=== PATIENT | female | born 1950 | race Caucasian/White ===

== ENCOUNTER 2023-12-09 11:02 | Observation (INO) | payer BC, OTHER ==
[2023-12-09] MEDS: SODIUM CHLORIDE 1,000 ML IV STA (11:50)
[2023-12-09] MEDS: KETOROLAC TROMETHAMINE 30 MG/1 ML VIAL IVPUSH ONE (11:50)
[2023-12-09] MEDS ORDERED: KETOROLAC TROMETHAMINE 15 MG/ML VIAL ONE (12:07)
[2023-12-09] MEDS ORDERED: ACETAMINOPHEN INJECTION 100 ML IVPB ONE (12:07)
[2023-12-09 12:34] LABS: BASO % 0.3 % (0-2.0); EOS % 1.3 % (0-4.5); LYMPH % 15.1 % (8-40); MCH 28.3 pg (25.7-33.7); MCHC 34.1 g/dl (32.0-36.0); MEAN CELL VOLUME 83.1 fl (80-96); MEAN PLT VOLUME 9.2 fl (7.5-11.1); MONO % 5.1 % (3.8-10.2); NEUT % 78.2 % (42.8-82.8); PLATELET COUNT 283 10^3/uL (134-434); RBC 4.93 M/mm3 (3.60-5.2); RDW 14.8 % (11.6-15.6); WHITE BLOOD COUNT 12.8 K/mm3 (4.0-10.0)
[2023-12-09 12:47] LABS: POTASSIUM 4.7 mmol/L (3.5-5.1)
[2023-12-09 12:49] LABS: CALCIUM 9.8 mg/dL (8.5-10.1)
[2023-12-09 12:50] LABS: ALBUMIN 3.9 g/dl (3.4-5.0); BLOOD UREA NITROGEN 14.8 mg/dL (7-18)
[2023-12-09 12:53] LABS: CREATININE 1.1 mg/dL (0.55-1.3)
[2023-12-09 12:54] LABS: BILIRUBIN,TOTAL 0.5 mg/dL (0.2-1); TOT PROT 7.9 g/dl (6.4-8.2)
[2023-12-09] MEDS: ACETAMINOPHEN 1000 MG/100 ML BAG IVPB ONE (12:54)
[2023-12-09] MEDS ORDERED: morphine SULFATE 4 MG/ML VIAL ONE (13:55)
[2023-12-09] MEDS: morphine CARPU-JECT 4 MG/1 ML DISP.SYRIN IVPUSH ONE (14:00)
[2023-12-09 15:43] LABS: EPI CELLS 11 /uL (0-25.1); HYALINE CASTS 0 /uL (0-3.1); URINE APPEARANCE CLEAR; URINE BACTERIA 20 /uL (0-1359); URINE BILIRUBIN NEGATIVE (NEGATIVE); URINE COLOR YELLOW; URINE GLUCOSE (UA) NEGATIVE (NEGATIVE); URINE KETONE NEGATIVE (NEGATIVE); URINE LEUK ESTERASE 1+ (NEGATIVE); URINE NITRITE NEGATIVE (NEGATIVE); URINE PROTEIN NEGATIVE (NEGATIVE); URINE RBC 745 /uL (0-23.9); URINE UROBILINOGEN 0.2 mg/dL (0.2-1.0); URINE WBC 124 /uL (0-25.8)
[2023-12-09 17:17] VITALS: RESP 18
[2023-12-09] MEDS ORDERED: ACETAMINOPHEN 1000 MG/100 ML BAG IVPB PRN ×2 (18:14→18:57)
[2023-12-09] MEDS ORDERED: TRIMETHOBENZAMIDE HCL 200MG/2ML INJ IM PRN (18:14)
[2023-12-09] MEDS ORDERED: CEFTRIAXONE 1 GM in DEXTROSE 5%-WATER - 50 ML IVPB ONE ×2 (18:30→21:15)
[2023-12-09] MEDS ORDERED: KETOROLAC TROMETHAMINE 15 MG/ML VIAL IVPUSH PRN (18:57)
[2023-12-09] MEDS: SODIUM CHLORIDE 1,000 ML IV SCH (20:25)
[2023-12-09] MEDS: CEFTRIAXONE 1 GM in DEXTROSE 5%-WATER - 50 ML IVPB SCH (21:25)
[2023-12-09] MEDS: TAMSULOSIN HCL 0.4 MG CAP PO ONE (21:26)
[2023-12-09] MEDS: ATORVASTATIN CA 10 MG TABLET (FP) PO SCH (21:27)
[2023-12-10 01:09] VITALS: BMI 30.9
[2023-12-10] MEDS ORDERED: SUCCINYLCHOLINE CHLORIDE 200 MG/10 ML SYRINGE ONE (07:14)
[2023-12-10] MEDS ORDERED: ceFAZolin SODIUM 1 GM VIAL ONE (07:20)
[2023-12-10] MEDS ORDERED: ONDANSETRON 4 MG/2 ML VIAL ONE (07:20)
[2023-12-10] MEDS ORDERED: KETOROLAC TROMETHAMINE 30 MG/1 ML VIAL ONE (07:20)
[2023-12-10] MEDS ORDERED: LIDOCAINE HCL/PF 2% SDV 5ML VIAL ONE (07:20)
[2023-12-10] MEDS ORDERED: DEXAMETHASONE SOD PHOSPHATE 4 MG/1 ML VIAL ONE (07:20)
[2023-12-10] MEDS ORDERED: FENTANYL CITRATE/PF 50 MCG/ML VIAL ONE (07:34)
[2023-12-10] MEDS ORDERED: GENTAMICIN SO4 80 MG/2 ML VIAL ONE (07:34)
[2023-12-10] MEDS ORDERED: MIDAZOLAM HCL 2 MG/2 ML SINGLE DOSE VIAL ONE (07:36)
[2023-12-10] MEDS ORDERED: PROPOFOL 20 ML ONE (07:38)
[2023-12-10] MEDS: GENTAMICIN 80MG PREMIX BAG IVPB ONE (07:43)
[2023-12-10] MEDS: ceFAZolin SODIUM 1 GM VIAL IVPB ONE (07:43)
[2023-12-10] MEDS ORDERED: ACETAMINOPHEN INJECTION 100 ML IVPB ONE (07:57)
[2023-12-10] MEDS ORDERED: ONDANSETRON 4 MG/2 ML VIAL IVPUSH PRN ×2 (08:18→08:54)
[2023-12-10] MEDS ORDERED: LACTATED RINGERS SOLUTION 1,000 ML IV SCH (08:30)
[2023-12-10] MEDS ORDERED: KETOROLAC TROMETHAMINE 15 MG/ML VIAL IVPUSH PRN (08:54)
[2023-12-10] MEDS ORDERED: ACETAMINOPHEN 1000 MG/100 ML BAG IVPB PRN (09:08)
[2023-12-10] MEDS: SODIUM CHLORIDE 1,000 ML IV SCH (09:15)
[2023-12-10] MEDS ORDERED: TRIMETHOBENZAMIDE HCL 200MG/2ML INJ IM PRN (09:23)
[2023-12-10] MEDS: CEFTRIAXONE 1 GM in DEXTROSE 5%-WATER - 50 ML IVPB SCH (09:51)
[2023-12-10 10:44] LABS: BASO % 0.3 % (0-2.0); EOS % 0.2 % (0-4.5); HEMATOCRIT 39.8 % (32.4-45.2); HEMOGLOBIN 13.2 GM/dL (10.7-15.3); LYMPH % 9.7 % (8-40); MCH 28.1 pg (25.7-33.7); MCHC 33.2 g/dl (32.0-36.0); MEAN CELL VOLUME 84.6 fl (80-96); MEAN PLT VOLUME 9.3 fl (7.5-11.1); MONO % 0.9 % (3.8-10.2); NEUT % 88.9 % (42.8-82.8); PLATELET COUNT 240 10^3/uL (134-434); RBC 4.71 M/mm3 (3.60-5.2); RDW 14.9 % (11.6-15.6)
[2023-12-10 11:01] LABS: POTASSIUM 3.8 mmol/L (3.5-5.1)
[2023-12-10 11:03] LABS: CALCIUM 8.4 mg/dL (8.5-10.1)
[2023-12-10 11:04] LABS: ALBUMIN 3.2 g/dl (3.4-5.0); BLOOD UREA NITROGEN 9.8 mg/dL (7-18); MAGNESIUM 2.1 mg/dL (1.8-2.4)
[2023-12-10 11:07] LABS: CREATININE 0.9 mg/dL (0.55-1.3); PHOSPHOROUS 2.4 mg/dL (2.5-4.9)
[2023-12-10 11:08] LABS: BILIRUBIN,TOTAL 0.4 mg/dL (0.2-1)
[2023-12-10 12:23] VITALS: BP 138/76; PULSE 93; TEMP 97.5
[2023-12-10] MEDS ORDERED: ATORVASTATIN CA 10 MG TABLET (FP) PO SCH (22:00)
[2023-12-21 01:11] LABS: SIZE 3x2 mm (.); WEIGHT 8 mg (.)
== END 2023-12-10 14:02 | disposition home or self-care (01) ==
LOC: JER 11:02 → JERBED 17:30 → UNDOADMOB 17:30 → INTOOBSV 17:30 → J6S 18:40 → JERBED 18:40 → J6S 19:50
PROVIDERS: ADMIT Internal Medicine; ATTEND Internal Medicine
PROC: 3E033NZ Introduction of Analgesics, Hypnotics, Sedatives into Peripheral Vein, Percutaneous Approach (ICD-10-PCS; principal; 2023-12-09)
PROC: 3E03329 Introduction of Other Anti-infective into Peripheral Vein, Percutaneous Approach (ICD-10-PCS; 2023-12-09)
PROC: 3E0333Z Introduction of Anti-inflammatory into Peripheral Vein, Percutaneous Approach (ICD-10-PCS; 2023-12-09)
PROC: 3E033NZ Introduction of Analgesics, Hypnotics, Sedatives into Peripheral Vein, Percutaneous Approach (ICD-10-PCS; 2023-12-09)
PROC: 3E0337Z Introduction of Electrolytic and Water Balance Substance into Peripheral Vein, Percutaneous Approach (ICD-10-PCS; 2023-12-09)
PROC: BT1DZZZ Fluoroscopy of Right Kidney, Ureter and Bladder (ICD-10-PCS; 2023-12-09)
PROC: 0TC68ZZ Extirpation of Matter from Right Ureter, Via Natural or Artificial Opening Endoscopic (ICD-10-PCS; 2023-12-09)
PROC: 0T768DZ Dilation of Right Ureter with Intraluminal Device, Via Natural or Artificial Opening Endoscopic (ICD-10-PCS; 2023-12-09)
DX: N13.30 Unspecified hydronephrosis (principal); N20.0 Calculus of kidney; N39.0 Urinary tract infection, site not specified; E03.9 Hypothyroidism, unspecified; R01.1 Cardiac murmur, unspecified; M19.90 Unspecified osteoarthritis, unspecified site; E78.5 Hyperlipidemia, unspecified; Z85.3 Personal history of malignant neoplasm of breast; Z87.442 Personal history of urinary calculi
CPT/HCPCS: 36415; 74177-TC; 76000-TC-FY; 80053; 81003; 82360; 83036; 83690; 83735; 84100; 85025; 87086; 88300-TC; 93005; 93010; 94760; 96361; 96365; 96366; 96375; 99285-25; C2617; G0378; J0131; Q9967

== ENCOUNTER 2024-01-09 04:35 | Day surgery (SDC) | payer BC ==
[2024-01-02 12:20] VITALS: BMI 30.2
[2024-01-09 06:35] VITALS: RESP 20
[2024-01-09] MEDS ORDERED: MIDAZOLAM HCL 2 MG/2 ML SINGLE DOSE VIAL ONE (07:48)
[2024-01-09 11:57] VITALS: BP 128/73; PULSE 78; TEMP 97.8
== END 2024-01-09 10:20 | disposition home or self-care (01) ==
LOC: JASU-SURG 04:35
PROVIDERS: ATTEND Urology
PROC: 0TF3XZZ Fragmentation in Right Kidney Pelvis, External Approach (ICD-10-PCS; principal; 2024-01-09 08:30)
DX: N20.0 Calculus of kidney (principal)

== ENCOUNTER 2024-10-29 05:47 | Day surgery (SDC) | payer BC, OTHER ==
[2024-10-25 14:55] VITALS: BMI 29.9
[2024-10-29 10:22] VITALS: RESP 16
[2024-10-29] MEDS ORDERED: PROPOFOL 20 ML ONE (11:41)
[2024-10-29] MEDS ORDERED: MIDAZOLAM HCL 2 MG/2 ML SINGLE DOSE VIAL ONE ×2 (11:41→13:43)
[2024-10-29] MEDS ORDERED: GENTAMICIN SO4 80 MG/2 ML VIAL ONE (12:24)
[2024-10-29] MEDS: GENTAMICIN SO4 80 MG/2 ML VIAL IVPB ONE (12:25)
[2024-10-29] MEDS: ceFAZolin SODIUM 1 GM VIAL IVPB ONE (12:25)
[2024-10-29] MEDS ORDERED: ONDANSETRON 4 MG/2 ML VIAL ONE ×2 (12:33→13:54)
[2024-10-29] MEDS ORDERED: ceFAZolin SODIUM 1 GM VIAL ONE (12:33)
[2024-10-29] MEDS ORDERED: DEXAMETHASONE SOD PHOSPHATE 4 MG/1 ML VIAL ONE (12:33)
[2024-10-29] MEDS ORDERED: VERAPAMIL HCL 5 MG/2 ML VIAL IVPUSH ONE (13:43)
[2024-10-29] MEDS ORDERED: ONDANSETRON 4 MG/2 ML VIAL IVPUSH PRN (14:07)
[2024-10-29] MEDS ORDERED: LACTATED RINGERS SOLUTION 1,000 ML IV SCH (14:15)
[2024-10-29 15:42] VITALS: BP 150/68; PULSE 72; TEMP 97.1
== END 2024-10-29 16:04 | disposition home or self-care (01) ==
LOC: JASU-SURG 05:47
PROVIDERS: ATTEND Urology
PROC: 0TF38ZZ Fragmentation in Right Kidney Pelvis, Via Natural or Artificial Opening Endoscopic (ICD-10-PCS; principal; 2024-10-29 12:15)
PROC: 0T768DZ Dilation of Right Ureter with Intraluminal Device, Via Natural or Artificial Opening Endoscopic (ICD-10-PCS; 2024-10-29 12:15)
DX: N20.0 Calculus of kidney (principal)
CPT/HCPCS: 76000-TC-FY; 94760; C1758; C2617